=== PATIENT | female | born 1950 | race Caucasian/White ===

== ENCOUNTER → 2017-08-24 | Day surgery (SDC) | payer OTHER, BC ==
--- NOTE | 2017-08-25 16:17 | PATH ---
Surgical Pathology Report Patient Name: JOSEFINA GILLIS [facility]. Rec. #: [id number] /Age/Gender: 1950 (Age: 67) / F Account: [id number] Location: [facility] Taken: 08/24/2017 Received: 08/24/2017 Reported: 08/25/2017 Physicians: Lazaro Quinones M.D. Specimen(s) Received RIGHT BREAST 12:00 8 FN CORE BX Clinical History Ultrasound findings: Suspicious Final Diagnosis BREAST, RIGHT, 12:00, 8 CM FN, CORE BIOPSY: BENIGN BREAST TISSUE SHOWING SCLEROSED FIBROADENOMA. Electronically Signed Mamie Niño M.D. Gross Description Received in formalin labeled "right breast biopsy 12:00, 8cmfn," is a 2.7 x 1.3 x 0.3 cm aggregate of multiple bonilla-yellow, irregular to cylindrical portions of fibroadipose tissue admixed with blood clot. The formalin is filtered and the specimen is entirely submitted in one cassette. Time to formalin fixation: 2 minutes Total formalin fixation time: Approximately 7 hours. /08/24/2017 saudi/08/24/2017
== END | disposition home or self-care (01) ==
LOC: FRADUS-SUR 09:37
PROVIDERS: ATTEND Surgery Surgical Oncology
PROC: 0HBT3ZX Excision of Right Breast, Percutaneous Approach, Diagnostic (ICD-10-PCS; principal; 2017-08-24)
DX: D24.1 Benign neoplasm of right breast (principal); N63.10 Unspecified lump in the right breast, unspecified quadrant
CPT/HCPCS: 19083; 77065-TC; 87899; 88305-TC; A4648